=== PATIENT | male | born 1960 | race Caucasian/White ===

== ENCOUNTER 2017-10-03 10:17 | Day surgery (SDC) | payer BC ==
[2017-10-03] MEDS ORDERED: DEXTROSE 5%-LR 1,000 ML IV (12:00)
== END 2017-10-03 10:55 | disposition home or self-care (01) ==
LOC: SDS 10:17
DX: J34.2 Deviated nasal septum (principal); J31.0 Chronic rhinitis; Z53.9 Procedure and treatment not carried out, unspecified reason; Z79.02 Long term (current) use of antithrombotics/antiplatelets
CPT/HCPCS: J7121